=== PATIENT | male | born 1945 | race Caucasian/White ===

== ENCOUNTER 2017-03-25 05:14 | Inpatient (IN) | payer BC ==
--- NOTE | ~2017-03-25 | OP ---
Record Of Operation [facility] [address] [place]. [address] NAME: LISA MURILLO : 49 STATUS : DIS IN PAT#: [id number] AGE: 71 ADM/REG DATE : 03/25/17 MR#: [id number] REPORT SERV DATE: 03/30/17 DICTATED BY: NICKOLAS ALCOCER III DATE: 03/30/17 REPORT STATUS : Draft TRANSCRIBED BY: MODL DATE: 03/30/17 DATE OF PROCEDURE: 03/25/2017 REFERRING PHYSICIAN: None. PROCEDURAL STEM ROLLER OR CRUSHER OPERATOR: Nickolas Alcocer M.D., [facility], [facility]. INDICATION: Mr. Lisa Murillo is a 71-year-old white male, with four other risk factors for coronary atherosclerotic disease (i.e. obesity, hyperlipoproteinemia, hypertension, and tobacco use) and no prior cardiac history, who presented with unstable angina pectoris progressing to an acute anterolateral ST-segment elevation myocardial infarction-acute coronary syndrome. The patient was referred for emergent cardiac catheterization and consideration of revascularization. Options, potential risks, and benefits of the procedure were discussed with the patient. The patient accepted these risks and wished to proceed PROCEDURE DESCRIPTION: 1. Left heart catheterization. 2. Left ventriculogram. 3. Left and right coronary angiograms. 4. Percutaneous transluminal coronary angioplasty with implantation of a 3.5 mm x 12 mm and 4.0 mm x 12 mm [employer] Synergy EES in the proximal portion of the left anterior descending coronary artery. 5. Limited right iliofemoral angiogram. CONTRAST: Iopamidol 200 mL. MEDICATIONS: 1. Midazolam 1 mg intravenously, in divided doses. 2. Sublimaze 50 mcg intravenously, in divided doses. 3. Bivalirudin with a loading dose of 0.75 mg/kg intravenously, followed by a standard intravenous infusion at 1.75 mg/kg per hour. 4. Amiodarone 150 mg intravenously, followed by a standard intravenous infusion at 1 mg/minute. 5. Lidocaine 75 mg intravenously. 6. Ticagrelor 180 mg orally. EQUIPMENT: 1. 6-Moldovan, 11 cm [employer] Ami MS sheath (RFA). 2. 0.035 inch PTFE coated, 150 cm, 3 mm J [employer] Route 7 Gateway guidewire. 3. 6-Moldovan, 100 cm #5 curve left coronary artery Philip catheter. 4. 6-Moldovan, 100 cm Rylan 3D right coronary artery catheter. 5. 6-Moldovan, XB LAD 4.5 Cordis [place] Brite-tip guiding catheter. 6. 0.014-inch Hi-Torque floppy, 190 cm, moderate support Kilpatrick Whisper steerable guidewire. 7. 2.5 mm x 15 mm [employer] Emerge MR that study MR balloon dilatation catheter Record Of Operation [address] [address] NAME: LISA MURILLO : 49 STATUS : DIS IN PAT#: [id number] AGE: 71 ADM/REG DATE : 03/25/17 MR#: [id number] REPORT SERV DATE: 03/30/17 DICTATED BY: NICKOLAS ALCOCER III DATE: 03/30/17 REPORT STATUS : Draft TRANSCRIBED BY: MODL DATE: 03/30/17 (14 atmospheres for a duration of 25 seconds). 8. 3.5 mm x 12 mm [employer] Synergy MR stent deployment system (18 atmospheres for a duration of 60 seconds). 9. 4.0 mm x 12 mm [employer] Synergy MR that MR stent deployment system (11 atmospheres for a duration of 30 seconds). 10.6-Moldovan, 110 cm pigtail-145 catheter. 11.6-Moldovan Kilpatrick Perclose ProGlide vascular closure device. COMPLICATIONS: Following angiography and prior to revascularization, the patient experienced three episodes of sustained ventricular tachycardia requiring defibrillation at 200 joules. RADIATION DOSE: 763 mGy. ESTIMATED BLOOD LOSS: 20 mL. HEMODYNAMIC DATA: Prior to left ventriculography, the central aortic pressure was 110/75 mmHg. The left ventricular pressure was 115/32 mmHg. (post a-wave). ANGIOGRAPHIC DATA: Single plane 30 degree ROSA left ventriculography demonstrated that the left ventricle was moderately enlarged. There was anterolateral glfuijlz-we-xqrbbdlsvv, and apical dyskinesis. Global left ventricular systolic function was severely reduced. There was mild mitral regurgitation. The left main coronary artery was a large caliber, short vessel. There was a 25% stenosis involving the mid portion of the left main coronary artery. The left main coronary artery bifurcated into a large caliber left anterior descending and a dridpa-qm-boecf caliber, nondominant left circumflex coronary arteries. The left anterior descending coronary artery gave rise to two major septal perforators and one large caliber diagonal branch, before supplying the left ventricular apex. There was a radiolucent, eccentric subtotal occlusion of the proximal portion of the left anterior descending coronary artery, just proximal to the origin of the first major septal crystal lapper, and major diagonal branch. There was LIDIA grade 1 perfusion of the distal vessel. The left circumflex coronary artery was a otrfty-eu-fgakl caliber, nondominant vessel. The left circumflex coronary artery gave rise to a hmdek-uo-kmcyzz caliber first obtuse marginal branch, rqhaej-zv-ftkwl caliber second obtuse marginal branch, and no posterolateral segment branches. The left circumflex coronary artery was diffusely irregular. The left circumflex coronary artery was free of angiographically significant obstructive epicardial coronary artery disease. The right coronary artery was a medium caliber, dominant vessel. The right coronary artery gave rise to a conus branch, medium caliber right ventricular branch, small caliber acute marginal branch, ofqir-ck-relhgb caliber posterior descending coronary artery, small caliber first posterior left ventricular branch, medium caliber second posterior left ventricular branch, and a small caliber third posterior left ventricular branch. Right coronary artery Record Of [place] [address] [place]. [address] NAME: LISA MURILLO : 49 STATUS : DIS IN PAT#: [id number] AGE: 71 ADM/REG DATE : 03/25/17 MR#: [id number] REPORT SERV DATE: 03/30/17 DICTATED BY: NICKOLAS ALCOCER III DATE: 03/30/17 REPORT STATUS : Draft TRANSCRIBED BY: JUAN F DATE: 03/30/17 was diffusely irregular. The right coronary artery was free of angiographically significant obstructive epicardial coronary artery disease. Following balloon dilatation and implantation of a 3.5 mm and 4.0 mm x 12 mm [employer] Synergy EES in the proximal portion of the left anterior descending coronary artery, selective injections of the left coronary artery demonstrated a reduction in the stenosis to 0%. There was no intraluminal radiolucency or irregularity. There was LIDIA grade III perfusion of the distal vessel. Limited right iliofemoral angiography demonstrated tortuosity with a 25% stenosis of the distal external iliac artery. There were diffuse irregularities of the common femoral artery. The sheath insertion site was located in the common femoral artery. PATIENT DISPOSITION: Coronary Care Unit. CONCLUSIONS: 1. Anterolateral djbdneoh-vt-ojxjgheqzp, and apical dyskinesis, with a severe reduction in global left ventricular systolic function. 2. Elevated left ventricular end-diastolic pressure. 3. Angiographically significant one-vessel coronary artery disease, involving the proximal portion of the left anterior descending coronary artery. 4. Right dominant coronary anatomy. 5. Successful percutaneous transluminal coronary angioplasty with implantation of a 3.5 mm x 12 mm and a 4.0 mm x 12 mm [employer] Synergy EES in the proximal portion of the left anterior descending coronary artery, with reduction in the stenosis to approximately 0% and LIDIA grade III perfusion of the distal vessel. 6. Mild mitral regurgitation. RECOMMENDATIONS: Aspirin for life, ticagrelor for at least 12 months, carvedilol, ramipril, high-intensity atorvastatin, cardiac rehabilitation program, echocardiogram to document global left ventricular ejection fraction, and consider LifeVest. ARTEMIO/MODL Nickolas Alcocer III, M.D., [facility] / [id number] CC: Nickolas Alcocer III, M.D., [facility] Ayan Cardenas M.D.
--- NOTE | ~2017-03-25 | HP ---
History And Physical [address] [place]. [address] NAME: LISA MURILLO : 49 STATUS : ADM IN [facility]#: [id number] AGE: 71 ADM/REG DATE : 03/25/17 MR#: [id number] REPORT SERV DATE: 03/25/17 DICTATED BY: NICKOLAS ALCOCER III DATE: 03/25/17 REPORT STATUS : Draft TRANSCRIBED BY: JUAN F DATE: 03/25/17 DATE OF ADMISSION: 03/25/2017 HISTORY OF PRESENT ILLNESS: Mr. Lisa Murillo is a 71-year-old white male from [place], [place], admitted for treatment of an acute anterior ST-segment elevation myocardial infarction. The patient had been in his usual state of health until approximately six months prior to this admission. At that time, the patient noted the onset of progressive fatigue. The patient did well until approximately two weeks prior to this admission. At that time, the patient had the onset of dull bilateral upper extremity pain (above the level of the elbows) lasting up to 10 minutes in duration. The patient denied any relation to exertion. The patient did well until approximately 7-1/2 hours prior to admission. At that time, the patient noted the onset of dull substernal chest pain, radiating to his upper extremities to the level of the elbows. The patient's chest pain lasted approximately 15 minutes in duration. The patient's chest pain occurred at rest. The patient's chest pain was relieved by aspirin and alprazolam. The patient did well until approximately 2-1/2 hours prior to admission. At that time, the patient noted the onset of dull substernal chest pain, radiating to his upper extremities to the level of the elbow. The patient's chest pain was continuous in character. The patient's chest pain was accompanied by diaphoresis. The patient denied any associated dyspnea, nausea, or vomiting. The patient's chest pain was unrelieved by two aspirin. The patient was subsequently seen by the emergency medical service and transported to [facility]. A 12-lead electrocardiogram performed in the emergency room demonstrated sinus rhythm with frequent ventricular premature complexes at a rate of 82 beats per minute. There was evidence of an acute anterior-lateral ST-segment elevation myocardial infarction with reciprocal inferior ST-segment depression. The patient was admitted for emergent cardiac catheterization and consideration of revascularization. The patient complained of dyspnea on exertion, but could not quantitate his functional limitation. The patient denied orthopnea, paroxysmal nocturnal dyspnea, pedal edema, sacral edema, palpitations, and syncope. The patient has no history of rheumatic fever or cardiac murmur. The patient denied hip and lower extremity claudication. The patient's documented coronary artery disease risk factors include hyperlipoproteinemia, hypertension, and tobacco use. PAST MEDICAL HISTORY: 1. Hypertension. 2. Hyperlipoproteinemia. 3. Chronic obstructive pulmonary disease. 4. History of colon polyps. 5. Chronic low back pain. OPERATIVE PROCEDURE: Status post sternal wiring for fracture. ALLERGIES: NONE. MEDICATIONS: History And Physical [address] [address] NAME: LISA MURILLO : 49 STATUS : ADM IN [facility]#: [id number] AGE: 71 ADM/REG DATE : 03/25/17 MR#: [id number] REPORT SERV DATE: 03/25/17 DICTATED BY: NICKOLAS ALCOCER III DATE: 03/25/17 REPORT STATUS : Draft TRANSCRIBED BY: JUAN F DATE: 03/25/17 1. Aspirin 81 mg p.o. daily. 2. Valsartan 160 mg p.o. daily. 3. Pitavastatin 2 mg p.o. daily. 4. Lorazepam 1 mg p.o. daily p.r.n. 5. Omeprazole 40 mg p.o. daily. 6. Tramadol 50 mg p.o. t.i.d. p.r.n. FAMILY HISTORY: Positive for myocardial infarction. Negative for hypertension, stroke, seizures, cancer, diabetes mellitus, kidney disease, liver disease, anemia, arthritis, and mental illness. SOCIAL HISTORY: The patient smokes approximately one pack per day and has done so for the last 40 years. The patient has a history of social alcohol use. PHYSICAL EXAMINATION: GENERAL: Physical examination demonstrated an alert, obese older white male, in no acute distress. VITAL SIGNS: Demonstrated that he was afebrile to touch, respiratory rate was 13 breaths per minute, and blood pressure was 136/78 mmHg with a heart rate of 72 beats per minute. SKIN: Warm and dry. NECK: Supple and nontender. There was decreased range of motion. There was no appreciable lymphadenopathy or thyromegaly. There was no jugular venous distention at 90 degrees. There were no carotid bruits. BACK: Examination of the back demonstrated no spinal or costovertebral angle tenderness. CHEST: Examination of the chest demonstrated decreased breath sounds throughout. There were no crackles, rhonchi, wheezes, or pleural rubs. There was symmetrical expansion of the chest. There was no use of the accessary muscles of respiration. CARDIAC: Demonstrated a nonpalpable apical impulse. There was a regular rhythm and rate without murmur, rub, gallop, or mid systolic click. There were no thrills or heaves. There was no hepatojugular reflux. ABDOMEN: Examination of the abdomen demonstrated that it was obese, soft, and protuberant. There was no appreciable hepatosplenomegaly or masses. Bowel sounds were intact. There were no abdominal or femoral bruits. EXTREMITIES: Examination of the extremities demonstrated that they were symmetrical. There was decreased range of motion. There was no cyanosis, clubbing, or edema. Pulses were 2+ and equal at the radial, femoral, and posterior tibial arteries. The right dorsalis pedis pulse was trace to nonpalpable and the left dorsalis pedis pulse was 2+. ASSESSMENT: Mr. Lisa Murillo is a 71-year-old white male with four other risk factors for coronary atherosclerotic disease (i.e. obesity, hyperlipoproteinemia, hypertension, tobacco use) and no prior cardiac history, who now presents with unstable angina pectoris progressing to an acute anterolateral ST-segment elevation myocardial infarction-acute coronary syndrome. The patient is admitted for emergent cardiac catheterization and consideration of revascularization. Options, potential risks and benefits of the procedures were discussed with the patient. The patient accepted these risks and wished to proceed. History And Physical [address] [address] NAME: LISA MURILLO : 49 STATUS : ADM IN [facility]#: [id number] AGE: 71 ADM/REG DATE : 03/25/17 MR#: [id number] REPORT SERV DATE: 03/25/17 DICTATED BY: NICKOLAS ALCOCER III DATE: 03/25/17 REPORT STATUS : Draft TRANSCRIBED BY: JUAN F DATE: 03/25/17 /JUAN F Nickolas Alcocer III, M.D., [facility] / [id number] CC: Nickolas Alcocer III, M.D., [facility] Cardenas M.D.
[2017-03-25 05:28] LABS: HEMATOCRIT 43.8 % (40.0-51.0); HEMOGLOBIN 15.4 g/dL (13.6-17.8); MEAN CORPUS HGB CONC 35.2 g/dL (32.0-36.0); MEAN CORPUSCULAR HEMOGLOB 31.8 pg (26.0-34.0); MEAN CORPUSCULAR VOLUME 90.3 fL (80-100); MEAN PLATELET VOLUME 9.2 fL (9.2-13.0); PLATELET COUNT 325 10/3/uL (150-400); RBC DISTRIBUTION WIDTH 13.6 % (12.0-16.0); RED CELL COUNT 4.85 10/6/uL (4.7-6.1); WHITE BLOOD CELLS 16.1 10/3/uL (4.5-10.5)
[2017-03-25 05:29] LABS: MANUAL DIFF YES %
[2017-03-25 05:37] LABS: PROTIME (NOT ORD) 13.1 SEC (12.0-14.5)
[2017-03-25 05:46] LABS: ALBUMIN 3.5 G/DL (3.5-5.0); BUN (BLOOD UREA NITROGEN) 13 MG/DL (6-23); CHLORIDE, SERUM 109 MMOL/L (96-112); CO2 (CARBON DIOXIDE) 27 MMOL/L (24-34); CREATININE 1.09 MG/DL (0.70-1.30); GFR AFRICAN AMERICAN 80 ML/MIN (>=60); GFR NON AFRICAN AMERICAN 69 ML/MIN (>=60); GLOBULIN 3.4 G/DL (2.5-4.1); POTASSIUM, SERUM 3.8 MMOL/L (3.5-5.3); SGOT(AST) 17 U/L (5-40); SGPT(ALT) 20 U/L (5-65); SODIUM, SERUM 143 MMOL/L (135-148); TOTAL BILIRUBIN 0.2 MG/DL (0-1.2); TOTAL PROTEIN 6.9 G/DL (6.0-8.5)
[2017-03-25 05:50] LABS: ALKALINE PHOSPHATASE 122 U/L (45-117); GLUCOSE, SERUM 158 MG/DL (60-99)
[2017-03-25 05:51] LABS: TROPONIN I 0.18 NG/ML (<0.05)
[2017-03-25 05:53] LABS: BAND NEUTROPHILS 3 %; EOSINOPHILS 3 %; EOSINOPHILS ABSOLUTE (CALC) 0.48 10/3/uL (0.0-0.53); LYMPHOCYTES 34 %; LYMPHOCYTES ABSOLUTE (CALC) 5.47 10/3/uL (0.67-4.30); MONOCYTES 6 %; MONOCYTES ABSOLUTE (CALC) 0.97 10/3/uL (0.21-1.20); NEUTROPHILS ABSOLUTE (CALC) 9.18 10/3/uL (2.02-8.40); PLATELET ESTIMATE ADQ (ADEQUATE); RBC MORPHOLOGY NORM (NORMAL); SEGMENTED NEUTROPHIL (0) 54 %; TOTAL NUCLEATED CELLS 100
[2017-03-25 09:10] LABS: CPK 93 U/L (0-200)
[2017-03-25 09:11] LABS: CK-MB 1.7 NG/ML
[2017-03-25] MEDS ORDERED: LIVALO2 MG PO (10:41)
[2017-03-25] MEDS ORDERED: DIOV160 PO (10:42)
[2017-03-25] MEDS ORDERED: ATV1 PO (10:42)
[2017-03-25] MEDS ORDERED: PRILOSEC40 MG PO (10:42)
[2017-03-25] MEDS ORDERED: HALF81 PO (10:43)
[2017-03-25] MEDS ORDERED: ULTRAM50 PO (10:43)
[2017-03-25 13:19] LABS: CK-MB 561.9 NG/ML
[2017-03-26 00:16] LABS: CK-MB 251.4 NG/ML
[2017-03-26 00:17] LABS: CKMB INDEX (NOT ORD) 5.6
[2017-03-26 04:12] LABS: BASOPHILS 0.1 %; BASOPHILS ABSOLUTE 0.01 10/3/uL (0.0-0.16); EOSINOPHILS 0.5 %; EOSINOPHILS ABSOLUTE 0.08 10/3/uL (0.0-0.53); HEMATOCRIT 40.3 % (40.0-51.0); IMMATURE GRANULOCYTES 0.4 %; IMMATURE GRANULOCYTES ABSOLUTE 0.06 10/3/uL (0.0-0.11); LYMPHOCYTES 9.7 %; LYMPHOCYTES ABSOLUTE 1.57 10/3/uL (0.67-4.30); MEAN CORPUS HGB CONC 34.7 g/dL (32.0-36.0); MEAN CORPUSCULAR HEMOGLOB 31.4 pg (26.0-34.0); MEAN CORPUSCULAR VOLUME 90.4 fL (80-100); MEAN PLATELET VOLUME 9.3 fL (9.2-13.0); MONOCYTES 7.8 %; MONOCYTES ABSOLUTE 1.26 10/3/uL (0.21-1.20); NEUTROPHILS 81.5 %; NEUTROPHILS ABSOLUTE 13.15 10/3/uL (2.02-8.40); PLATELET COUNT 260 10/3/uL (150-400); RBC DISTRIBUTION WIDTH 13.9 % (12.0-16.0); RED CELL COUNT 4.46 10/6/uL (4.7-6.1); WHITE BLOOD CELLS 16.1 10/3/uL (4.5-10.5)
[2017-03-26 04:13] LABS: MANUAL DIFF NO %
[2017-03-26 04:33] LABS: BUN (BLOOD UREA NITROGEN) 10 MG/DL (6-23); CALCIUM, SERUM 9.3 MG/DL (8.5-10.4); CHLORIDE, SERUM 105 MMOL/L (96-112); CHOL/HDL RATIO(NOT ORDER) 4.8 (0-5); CHOLESTEROL 145 MG/DL (< 200); CK-MB 151.3 NG/ML; CO2 (CARBON DIOXIDE) 27 MMOL/L (24-34); CPK 3483 U/L (0-200); CREATININE 0.91 MG/DL (0.70-1.30); GFR AFRICAN AMERICAN 99 ML/MIN (>=60); GFR NON AFRICAN AMERICAN 86 ML/MIN (>=60); GLUCOSE, SERUM 129 MG/DL (60-99); HDL CHOLESTEROL 30 MG/DL (> 39); NON-HDL CHOLESTEROL 115 MG/DL (< 160); POTASSIUM, SERUM 4.4 MMOL/L (3.5-5.3); SODIUM, SERUM 139 MMOL/L (135-148)
[2017-03-26 04:36] LABS: CKMB INDEX (NOT ORD) 4.3; LDL CHOLESTEROL 83 MG/DL (< 130); TRIGLYCERIDE 162 MG/DL (< 150)
[2017-03-27 05:18] LABS: CREATININE 0.87 MG/DL (0.70-1.30)
[2017-03-27] MEDS ORDERED: LIPITOR80 MG PO (09:35)
[2017-03-27] MEDS ORDERED: COREG6 PO (09:37)
[2017-03-27] MEDS ORDERED: SPIRO25 PO (09:38)
[2017-03-27] MEDS ORDERED: ALTA2.5 PO (09:38)
[2017-03-27] MEDS ORDERED: BRILINTA90 MG PO (09:39)
[2017-03-27] MEDS ORDERED: NITROSTAT0.4 MG SL (09:41)
== END 2017-03-27 11:45 | disposition home or self-care (01) | DRG 247 ==
LOC: CORLMH 05:14 → SSU2 05:17 → CCU 06:43 → 7NO 03-26 18:04
PROVIDERS: Emergency Medicine; Internal Medicine Cardiovascular Disease
PROC: 027035Z Dilation of Coronary Artery, One Artery with Two Drug-eluting Intraluminal Devices, Percutaneous Approach (ICD-10-PCS; principal; 2017-03-25)
PROC: 4A023N7 Measurement of Cardiac Sampling and Pressure, Left Heart, Percutaneous Approach (ICD-10-PCS; 2017-03-25)
PROC: B2111ZZ Fluoroscopy of Multiple Coronary Arteries using Low Osmolar Contrast (ICD-10-PCS; 2017-03-25)
PROC: B2151ZZ Fluoroscopy of Left Heart using Low Osmolar Contrast (ICD-10-PCS; 2017-03-25)
DX: I21.09 ST elevation (STEMI) myocardial infarction involving other coronary artery of anterior wall (principal); I47.2 Ventricular tachycardia; J44.9 Chronic obstructive pulmonary disease, unspecified; I10 Essential (primary) hypertension; I25.10 Atherosclerotic heart disease of native coronary artery without angina pectoris; E78.5 Hyperlipidemia, unspecified; E66.9 Obesity, unspecified; F17.210 Nicotine dependence, cigarettes, uncomplicated; G89.29 Other chronic pain; M54.5 Low back pain; M54.9 Dorsalgia, unspecified; Z86.010 Personal history of colon polyps; Z82.49 Family history of ischemic heart disease and other diseases of the circulatory system; Z68.27 Body mass index [BMI] 27.0-27.9, adult
CPT/HCPCS: 80048; 80053; 80061; 82550; 82553; 82565; 84484; 85025; 85610; 87641; 93005; 93458; 99152; 99153; 99285; A9270-GY; C1725; C1760; C1769; C1874; C1887; C1894; C8929; C9606; J0282; J0583; J2250; J2405; J3010; Q9957; Q9967